=== PATIENT | male | born 1995 | race Caucasian/White ===

== ENCOUNTER 2022-02-06 19:39 | Emergency (ER) | payer OTHER ==
[~2022-02-06] VITALS: Ht 167.6 cm; Wt 61.5 kg
[2022-02-06 19:51] VITALS: BP 132/67
[2022-02-06] MEDS ORDERED: IBUPROFEN 600MG TABLET PO ONE (22:15)
[2022-02-06] MEDS ORDERED: BACITRACIN/POLYMYXIN B SULFATE OINT 15GM TOP ONE (22:15)
[2022-02-06] MEDS ORDERED: TETANUS, DIPHTHERIA, PERTUSSIS VAC/PF 0.5ML (>10YR OLD) IM ONE (22:15)
== END 2022-02-07 00:44 | disposition home or self-care (01) ==
LOC: ER 19:39
DX: T25.212A Burn of second degree of left ankle, initial encounter (principal); X12.XXXA Contact with other hot fluids, initial encounter; Y93.89 Activity, other specified; Y92.511 Restaurant or cafe as the place of occurrence of the external cause; Y99.0 Civilian activity done for income or pay
CPT/HCPCS: 99281